=== PATIENT | female | born 1990 | race Caucasian/White ===

== ENCOUNTER 2021-04-24 11:22 | Emergency (ER) | payer OTHER, SELFPAY ==
[2021-04-24 11:33] VITALS: BP 126/78; PULSE 86; RESP 18; TEMP 36.8; O2SAT 100
--- NOTE | 2021-04-24 11:45 | ED.URI ---
HPI - URI/Sore Throat General Chief Complaint: Upper Respiratory Infection Stated Complaint: sinus pressure Time Seen by Provider: 04/24/21 11:34 Source: patient and RN notes reviewed Mode of arrival: ambulatory Limitations: no limitations History of Present Illness HPI Narrative: Patient presents today with an 8-day history of sinus pressure and frontal headache. She had a negative COVID-19 test 2 days ago. Denies fever, cough, nausea, vomiting, diarrhea. She has been taking Tylenol, ibuprofen, and Sudafed with slight relief. MD elicited complaint: nasal congestion and sinus pain Related Data Allergies Allergy/AdvReac Type Severity Reaction Status Date / Time No Known Allergies Allergy Unknown Verified 04/24/21 11:26 Review of Systems Review of Systems: CONSTITUTIONAL: Denies body aches, fever, chills, or sweats. EYES: Denies visual changes, redness, or discharge. ENT: Denies rhinorrhea, sore throat, or otalgia.+ Congestion, sinus pressure CARDIOVASCULAR: Denies chest pain, palpitations, or edema. RESPIRATORY: Denies cough or dyspnea. GASTROINTESTINAL: Denies abdominal pain, nausea, vomiting, or diarrhea. GENITOURINARY: Denies dysuria or hematuria. SKIN: Denies rash, itching, or wounds. MUSCULOSKELETAL: Denies back pain, joint pain, or myalgia. NEUROLOGIC: Denies numbness, tingling, or weakness.+ Headache PSYCH: Denies depression or anxiety. PMFSH Comments At time of signature, I have reviewed and agree with nursing past medical, surgical, social and family history unless otherwise noted. Please see nursing chart for further information. There is no relevant family history pertinent to the presenting complaint Exam Narrative: GENERAL: Well-appearing, well-nourished, and in no acute distress. HEAD: Normocephalic, atraumatic. EYES: EOMI. No redness or drainage. Conjunctivae normal. ENT: Mucous membranes pink and moist. Nares congested. Bilateral swollen and erythematous nasal turbinates with purulent discharge. Bilateral frontal sinus tenderness. No maxillary sinus tenderness. No rhinorrhea. TMs normal bilaterally. Throat normal. Uvula midline. NECK: Normal AROM. Supple. No lymphadenopathy. CHEST: No respiratory distress. Clear to auscultation. HEART: Regular rate and rhythm. No murmur appreciated. Normal peripheral pulses. EXTREMITIES: Normal range of motion. No edema. SKIN: Warm, dry, no rash. Capillary refill normal. Normal skin turgor. NEURO: No focal deficits. Alert and oriented x3. Gait steady. PSYCH: Normal affect. No signs of depression or anxiety. Course Course Level of Care: Express Care Visit Vital Signs Vital signs: Vital Signs Temperature 98.3 F 04/24/21 11:33 Pulse Rate 86 04/24/21 11:33 Respiratory Rate 18 04/24/21 11:33 Blood Pressure 126/78 04/24/21 11:33 Pulse Oximetry 100 04/24/21 11:33 Temperature 98.3 F 04/24/21 11:33 Pulse Rate 86 04/24/21 11:33 Respiratory Rate 18 04/24/21 11:33 Blood Pressure 126/78 04/24/21 11:33 Pulse Oximetry 100 04/24/21 11:33 Reviewed. Pt has been instructed to follow up with her PCP regarding her elevated blood pressure today. MDM - URI/Sore Throat Differential Diagnosis Differential diagnosis: Likely upper respiratory infection, sinusitis and viral infection Critical Care Time Critical Care Time Critical Care Time: No Discharge Plan Discharge Clinical Impression: Upper respiratory infection Qualifiers: URI type: unspecified URI Qualified Code(s): J06.9 - Acute upper respiratory infection, unspecified Patient Disposition: Home, Self-Care Condition: Stable Instructions: Upper Respiratory Infection (DC) Additional Instructions: Please take the amoxicillin as prescribed until gone. Continue the Sudafed and Tylenol or ibuprofen for your pain and congestion. Follow-up with your doctor next week if symptoms are not improving. Your blood pressure was elevated above 120/80 today at Urgent Care. Thi
== END 2021-04-24 11:55 | disposition home or self-care (01) ==
PROVIDERS: Emergency Provider Nurse Practitioner
DX: J06.9 Acute upper respiratory infection, unspecified (principal)
CPT/HCPCS: 99213; G0463

== ENCOUNTER 2021-06-09 07:33 | Outpatient (RCR) | payer OTHER, SELFPAY ==
[2021-06-08 13:38] LABS: Hematocrit 27.7 % (37.0-47.0); Hemoglobin 7.9 g/dL (12.0-15.0)
[2021-06-09] VITALS (10 sets, daily range): BP systolic 107–128; BP diastolic 63–80; PULSE 70–80; RESP 15–20; TEMP 36.4–36.9; O2SAT 97–99
[2021-06-09] MEDS: ACETAMINOPHEN 325 MG TABLET 650 MG PO (08:11)
== END 2021-09-06 23:59 | disposition home or self-care (01) ==
LOC: ANHLAB 07:33
PROVIDERS: Visit Provider Obstetrics & Gynecology
DX: D64.9 Anemia, unspecified (principal)
CPT/HCPCS: 36415; 36430; 85014; 85018; 86850; 86900; 86901; 86920; P9016

== ENCOUNTER 2021-10-02 10:51 | Outpatient (CLI) | payer OTHER, SELFPAY ==
[2021-10-02 11:12] LABS: Hematocrit 37.2 % (37.0-47.0); Hemoglobin 11.2 g/dL (12.0-15.0); Mean Corpuscular HGB Conc 30.1 g/dl (32-36); Mean Corpuscular Hemoglobin 22.7 pg (26-34); Mean Corpuscular Volume 75.3 fl (80-100); Mean Platelet Volume 9.5 fl (7.4-10.4); Platelet Count Result 420 k/mm3 (150-375); Red Blood Count 4.94 M/mm3 (4.2-5.4); Red Cell Distribution Width 17.2 % (11.5-14.5); White Blood Count 6.3 K/mm3 (4.5-10.0)
[2021-10-02 14:41] LABS: Iron 36 ug/dL (37-170)
[2021-10-02 14:52] LABS: Percent Iron Saturation 8 % (20-50)
[2021-10-02 14:55] LABS: Anion Gap 8 mmol/L (8-16); Blood Urea Nitrogen 8 mg/dL (7-17); Calcium 9.1 mg/dL (8.4-10.2); Carbon Dioxide 25 mmol/L (22-30); Chloride 104 mmol/L (98-107); Estimated Glomerular Filt Rate > 60; Glucose 85 mg/dL (65-110); Potassium 4.5 mmol/L (3.4-5.0); Sodium 137 mmol/L (137-145)
[2021-10-02 15:21] LABS: Ferritin 9.56 ng/mL (6.24-137)
== END 2021-10-02 10:52 | disposition home or self-care (01) ==
PROVIDERS: Visit Provider Internal Medicine Hematology & Oncology
DX: D64.9 Anemia, unspecified (principal)
CPT/HCPCS: 36415; 80048; 82607; 82728; 83540; 83550; 85027

== ENCOUNTER 2022-03-02 10:55 | Emergency (ER) | payer OTHER, SELFPAY ==
[2022-03-02 11:04] VITALS: BP 120/75; PULSE 74; RESP 18; TEMP 37; O2SAT 100
--- NOTE | 2022-03-02 11:46 | ED.HA ---
HPI - Headache General Chief Complaint: Headache Stated Complaint: grayson/abd pain Time Seen by Provider: 03/02/22 11:46 Source: patient and RN notes reviewed Mode of arrival: ambulatory Limitations: no limitations History of Present Illness HPI Narrative: 31-year-old female presented with complaint of left-sided headache and left upper dental pain, onset this morning. Pain radiates into the left eye causing mild photophobia. She endorses pain shoots into the left eye. She rates pain 7/10. She has taken aspirin and Nurtec with no relief. She endorses history of migraines but states ?they are rare. ? She was given recheck by PCP. Denies numbness, tingling, weakness, vomiting or diarrhea, fevers or chills. Related Data Home Medications Medication Instructions Recorded Confirmed norethindrone 0.5 mg-ethinyl 1 tablet DAILY 03/02/22 03/02/22 estradiol 35 mcg tablet (Nortrel) spironolactone 100 mg tablet 100 mg DAILY 03/02/22 03/02/22 Allergies Allergy/AdvReac Type Severity Reaction Status Date / Time No Known Allergies Allergy Unknown Verified 03/02/22 11:13 Review of Systems Review of Systems: CONSTITUTIONAL: Denies body aches, fever, chills, or sweats. EYES: Denies visual changes, redness, or discharge. ENT: Denies rhinorrhea, congestion, sore throat, or otalgia. CARDIOVASCULAR: Denies chest pain, palpitations, or edema. RESPIRATORY: Denies cough or dyspnea. GASTROINTESTINAL: Denies abdominal pain, nausea, vomiting, or diarrhea. GENITOURINARY: Denies dysuria or hematuria. SKIN: Denies rash, itching, or wounds. MUSCULOSKELETAL: Denies back pain, joint pain, or myalgia. NEUROLOGIC: Endorses headache, denies numbness, tingling, or weakness, dizziness All systems reviewed & are unremarkable except as noted in HPI and below PMFSH Social History Social History Smoking status: Never smoker Spiritual care concerns: No Comments At time of signature, I have reviewed and agree with nursing past medical, surgical, social and family history unless otherwise noted. Please see nursing chart for further information. There is no relevant family history pertinent to the presenting complaint Exam Narrative: GENERAL: Well-appearing, well-nourished HEAD: Normocephalic, atraumatic. EYES: PERRLA, EOMI. ENT: Mucous membranes pink and moist. No rhinorrhea. TMs normal bilaterally. NECK: Normal AROM. Supple. No lymphadenopathy. CHEST: No respiratory distress. Clear to auscultation. HEART: Regular rate and rhythm. Normal peripheral pulses. ABDOMEN: Soft, nontender, nondistended, normal active bowel sounds. SKIN: Warm, dry, no rash. Capillary refill normal. Normal skin turgor. NEURO:No focal deficits. Alert and oriented x3. EOMs intact without nystagmus. No facial droop/asymmetry noted bilaterally. Grimace intact. Intact sensation in face. Hearing intact bilaterally. Shoulder shrug intact. Ambulatory exam with a normal based, steady gait. PSYCH: Normal affect, talkative Course Course Emergency Course: Patient is aware of diagnosis, understands and agrees to treatment plan. Anticipatory guidance given. Patient agrees to follow-up as directed and is aware of reasons to seek care at the emergency department. Portions of this record may have been created with voice recognition software Level of Care: Express Care Visit Vital Signs Vital signs: Vital Signs Temperature 98.6 F 03/02/22 11:04 Pulse Rate 74 03/02/22 11:04 Respiratory Rate 18 03/02/22 11:04 Blood Pressure 120/75 03/02/22 11:04 Pulse Oximetry 100 03/02/22 11:04 Oxygen Delivery Room Air 03/02/22 11:04 Temperature 98.6 F 03/02/22 11:04 Pulse Rate 74 03/02/22 11:04 Respiratory Rate 18 03/02/22 11:04 Blood Pressure 120/75 03/02/22 11:04 Pulse Oximetry 100 03/02/22 11:04 Oxygen Delivery Room Air 03/02/22 11:04 MDM - Headache MDM Narrative Medical
== END 2022-03-02 12:01 | disposition home or self-care (01) ==
PROVIDERS: Emergency Provider Nurse Practitioner Family
DX: R51.9 Headache, unspecified (principal)
CPT/HCPCS: 99213; G0463